=== PATIENT | female | born 1995 | race Caucasian/White ===

== ENCOUNTER 2016-06-16 03:41 | Emergency (ER) | payer MEDICAID ==
[~2016-06-16] VITALS: Ht 152.4 cm; Wt 68.0 kg
[~2016-06-16 03:41] MED LIST: BACTRIM DS 8001 TA1 PO; CIPRO 500MG TA500 MG PO; NOMEDS *; PRENATAL PLUS1 TA1 PO
--- NOTE | 2016-06-16 04:04 | Emergency Room Report ---
History of Present Illness Time Seen by [id number] Presenting Problem in Triage Pt arrived:Walked Presenting Problem:PT C/O RIGHT SIDE ABD PAIN. PT ADVISES THAT THE PAIN BEGAN ABOUT 30 MINS. PT ALSO C/O NAUSEA Onset of symptoms date/time:/ or onset unknown for:MEDICAL HX UNKNOWN Treatment Prior to Arrival: [employer]ER Provided by: Sepsis Risk Assessment: Temp: 98.2 B/P: MAP: Pulse: 113 Resp: 18 Recent fever? N Clinical Suspician of Infection? N Mental Status: 1 - Regular (Normal Baseline) Sepsis Risk:Low Sepsis Risk Have you (or family members/close friends) recently traveled outside the [place]? N If Yes, where/when: Have you had exposure to infectious disease within the past month? N TB? Other? Specify: Source patient, RN notes reviewed, family, RN/MD Exam Limitations no limitations Comment This is a 20-year-old feel patient presented to the emergency room with RUQ + RLQ abdominal pain, onset half an hour prior to arrival. Patient describes the pain as severe, nonradiating, without any nausea, vomiting, fever or diarrhea. Patient had a vaginal delivery in April 2016, and not breast-feeding. She is currently on Bactrim for a recently diagnosed urinary tract infection. ALLERGIES Coded Allergies: No Known Allergies (06/14/16) Home Medications Reported Medications SULFAMETHOXAZOLE W/TRIMETHOPRI (Bactrim Ds Tab) 1 TABLET PO BID History Medical History General CAD? No Angina: No DE: No Hypertension? No Hyperlipidemia? No CHF? No DVT? No PE? No COPD? No Asthma? No Anemia? No GERD? No Gastric ulcers? No GI Bleed? No Hernia? No Thyroid Problems? No Hypothyroidism? No CVA? No Seizures? No Diabetes? No Insulin Dependent: No Insulin Pump: No Home FSBS? No Renal Insuffiency? No End Stage Renal Disease? No UTI? No Stones? No BPH? No GB Disease: No Nephritic Syndrome? No Asplenia? No Hepatitis? No Sickle Cell Disease? No Arthritis? No Migraines? No Cataracts? No Glaucoma? No MRSA? No HIV? No TB? No Anxiety? No Depression? No Cancer? No More? 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 No: respiratory distress. Lung Sounds bilateral: normal breath sounds, lungs clear. 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 No Comment On reevaluation patient appears medically stable, clinically improving advised patient of results as well as need to follow-up with a urologist, at her earliest convenience. Results/Orders Laboratory Tests 06/16/16 0400: Sodium 138, Potassium 3.4 L, Chloride 103, Carbon Dioxide 27, BUN 13, Creatinine 0.8, Estimated Creat Clear 118, Estimated GFR (MDRD) 90, Glucose 102, Calcium 9.0, Total Bilirubin 0.2, AST 35, ALT 45, Alkaline Phosphatase 103, Total Protein 7.2, Albumin 2.8 L, Globulin 4.4 H, Albumin/Globulin Ratio 0.6 L, Amylase 35, Lipase 133, WBC 8.5, RBC 4.49, Hgb 10.6 L, Hct 33.9 L, MCV 75.5 L, RDW 15.3, Plt Count 205, MPV 7.3 L, Gran % 81.2 H, Gran # 6.9, Lymphocytes % 11.8, Monocytes % 6.1, Eosinophils % 0.9, Basophils % 0.0 L, Lymphocytes # 1.0, Monocytes # 0.5, Eosinophils # 0.1, Basophils # 0.0, PUBS MCHC 31.3 L, MCH 23.6 L, Urine Color YELLOW, Urine Appearance SL CLOUDY, Urine pH 6.0, Ur Specific [place] 1.025, Urine Protein 2+ H, Urine Ketones NEGATIVE, Urine Blood 3+ H, Urine Nitrate NEGATIVE, Urine Bilirubin NEGATIVE, Urine Urobilinogen 1.0, Ur Leukocyte Esterase 1+ H, Urine RBC 10-20, Urine WBC 20-50, Ur Squamous Epith Cells 5-10, Urine Glucose NEGATIVE Current Medication Orders Sig/Rosy Start time Last Medication Dose Route Stop Time Status Admin Levofloxacin 750 MG ONCE ONE 06/16 043 DC PO 06/16 043 Morphine Sulfate 4 MG ONCE ONE 06/16 040 DC 06/16 IV 06/16 040 0403 Morphine Sulfate 0 .STK-MED ONE 06/16 040 DC .ROUTE Promethazine HCl 12.5 MG ONCE ONE 06/16 399 DC 06/16 IV 06/16 040 0402 Promethazine HCl 0 .STK-MED ONE 06/16 040 DC .ROUTE Sodium Chloride 25 ML ONCE ONE 06/16 040 DC IV 06/16 0414 Sodium Chloride 10 ML PRN PRN 06/16 0400 AC IV 06/17 0351 Orders Procedure Date/time Status DIET-NOTHING BY MOUTH 06/16 B Active CULTURE, URINE 06/[address] ABD & PELVIS W/O CONTRAST 06/16 0355 Active IV SALINE LOCK 06/[address] ABD/PELVIS REQ 06/16 0348 Active URINALYSIS/COMPLETE 06/16 0348 Complete URINE 06/16 0348 Complete LIPASE 06/16 0348 Complete CBC WITH AUTO DIFF 06/16 0348 Complete CHEM 12 PROFILE 06/16 0348 Complete AMYLASE 06/16 0348 Complete XRAY/CT/US XRAY/CT/US CT abdomen, pelvis CT interpretation by reviewed by me (Ivelisse), discussed w/radiologist CT Results mild RIGHT hydronephrosis and perinephric fat stranding, consistent with recently passed stone, small amount of stool in the colon mesenteric adenitis Departure Departure Disposition DC Home or Self Care(routine) Clinical Impression Primary Impression: Urinary tract infection Qualifiers: Urinary tract infection type: acute cystitis Hematuria presence: without hematuria Qualified Code: N30.00 - Acute cystitis without hematuria Secondary Impressions: Abdominal pain Qualifiers: Abdominal location: right lower quadrant Qualified Code: R10.31 - Right lower quadrant pain Condition STABLE Referrals Steve RINCON,Henrique Silveira: Today after leaving ER Tucker RINCON,Niko: Today after leaving ER Patient Instructions DI for Kidney Stones, DI for Mesenteric Adenitis-Adult, DI for Urinary Tract Infection (UTI) Additional Instructions Please take the medication prescribed this instructed, stop the Bactrim and switched to Levaquin, follow-up with one of the neurologists listed above with your earliest convenience. Discharge Counseling Counseled pt/family regarding diagnosis, test results, medications/RX, home care, follow up needs Comment Please take the medication prescribed this instructed, stop the Bactrim and switched to Levaquin, follow-up with one of the neurologists listed above with your earliest convenience. Prescriptions Current Visit Scripts Levofloxacin (Levaquin 750mg) 750 MG PO DAILY #6 TAB Etodolac 200 MG PO BIDP PRN pain #20 [facility] ED Critical Care Critical Care No at 0601
[2016-06-16 04:13] LABS: URINE BILIRUBIN - DIPSTICK NEGATIVE (NEG); URINE BLOOD 3+ (NEG)
[2016-06-16 04:15] LABS: LYMPH % 11.8 % (10-50.0)
[2016-06-16 04:19] LABS: HEMOGLOBIN 10.6 g/dL (12.2-16.2)
[2016-06-16] MEDS ORDERED: LEVAQUIN 750 M750 MG PO (06:01)
[2016-06-16] MEDS ORDERED: ETODOLAC200 MG PO (06:01)
[2016-06-16 06:31] VITALS: BP 114/62
--- NOTE | 2016-06-16 08:13 | RADIOLOGY REPORT PS360 ---
CT ABD PELVIS W/O CONTRAST CLINICAL INDICATION: Abdominal pain, right lower quadrant pain, recent urinary tract infection ABD PAIN ORDERING PHYSICIAN: Matty Freeman MD PATIENT AGE: 20 years COMPARISON: None TECHNIQUE: Axial images obtained with sagittal and coronal reformats. PROCEDURE: Oral Contrast: None IV Contrast: None . FINDINGS: Lower thorax: No acute finding ABDOMEN: Liver: No masses or biliary dilatation. Gallbladder: Contracted, no radio opaque stones evident. Pancreas: No masses or peripancreatic fluid collections. Spleen: Unremarkable. Adrenals: Unremarkable Kidneys/ureters: Mild right hydronephrosis and hydroureter with stranding of the perinephric renal fat and mild blurring of the right renal outline. No obstructing ureteral calculi evident. Unremarkable appearing left kidney. Stomach bowel: Nondistended. No obvious mass or thickening. Appendix: No evidence of appendicitis. PELVIS: Bladder: Mild bladder wall thickening Reproductive: 17 mm right ovarian cyst suspected ABDOMEN & PELVIS: Peritoneum: Small amount fluid in the cul-de-sac Lymph nodes: Nonspecific nonenlarged mesenteric lymph nodes Vasculature: No evidence of abdominal aortic aneurysm. No retroperitoneal hemorrhage evident. Bones: No acute fracture IMPRESSION: 1. Mild right hydronephrosis and hydroureter with stranding of the perinephric renal fat and suggestion of mild edema of the right kidney with no obvious stone. This could be related to recently passed stone versus pyelonephritis. Differential diagnosis would include distal ureteral blood clot or neoplasm reflux uropathy. 2. Mild bladder wall thickening which may be due to nondistention versus cystitis. 3. 17 mm right ovarian cyst suspected
== END 2016-06-16 06:32 | disposition home or self-care (01) ==
LOC: ER 03:41
PROVIDERS: Emergency Medicine
DX: N30.00 Acute cystitis without hematuria (principal)